=== PATIENT | female | born 1995 | race Caucasian/White ===

== ENCOUNTER 2017-04-19 11:08 | Emergency (ER) | payer OTHER ==
[~2017-04-19] VITALS: Ht 167.6 cm; Wt 106.6 kg
[~2017-04-19 11:08] MED LIST: PRD20T PO
[2017-04-19] MEDS ORDERED: NORG1TAB14 (11:30)
--- NOTE | 2017-04-19 11:44 | ED Upper Extremity ---
General Chief Complaint: Upper Extremity Stated Complaint: R HAND RING FINGER INJ Nursing Triage Note: SCRAPED 4TH RIGHT FINGER WHILE DOING DISHES AT WORK 04/18/17. REPORTS SWELLING/PAIN TO 3RD, 4TH FINGERS TODAY. 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 Reports today waking up with increased swelling, redness, and pain. Does report having a fever of 100.8 at home. Denies taking any medications at home. Location Injury Occurred: work Onset: yesterday Pain/Injury Location: right hand, right 4th finger Method of Injury: other (abrasion while washing pans at work.) Modifying Factors: Worse With Movement Allergies and Home Medications Allergies Coded Allergies: No Known Drug Allergies (Unverified , 05/04/16) Home Medications Doxycycline Hyclate 100 Mg Capsule, 100 MG PO BID, #14 Ref 0 Prescribed by: CARLOTA LEMUS on 04/19/17 1157 Hydrocodone/Acetaminophen 1 Each Tablet, 1 EACH PO Q4H PRN for PAIN, #14 Ref 0 Prescribed by: CARLOTA LEMUS on 04/19/17 1157 Norgestimate-Ethinyl Estradiol 1 Each Tablet, #84 (Reported) Sulfamethoxazole/Trimethoprim 1 Each Tablet, 1 EACH PO BID, #14 Ref 0 Prescribed by: CARLOTA LEMUS on 04/19/17 1157 Constitutional: see HPI, fever, No malaise Respiratory: no symptoms reported Cardiovascular: no symptoms reported Musculoskeletal: see HPI Skin: see HPI Psychiatric/Neurological: No Symptoms Reported All Other Systems Reviewed Negative Unless Noted: Yes (Negative excepted noted.) Past Wfsfunr-Yebzhn-Myoolc Hx Patient Social History Alcohol Use: Denies Use Recreational Drug Use: Yes Drug of Choice: CANNIBUS Smoking Status: Current Everyday Smoker Type Used: Cigarettes 2nd Hand Smoke Exposure: Yes Recent Foreign Travel: No Contact w/Someone Who Travel: No Recent Infectious Disease Expo: No Recent Hopitalizations: No Immunizations Up To Date Tetanus Booster (TDap): Less than 5yrs Seasonal Allergies Seasonal Allergies: No Surgeries HX Surgeries: Yes Surgeries: Adenoidectomy, Tonsillectomy Respiratory Hx Respiratory Disorders: No Cardiovascular Hx Cardiac Disorders: No Neurological Hx Neurological Disorders: No Reproductive System Hx Reproductive Disorders: Yes (POLYCYSTIC OVARIAN SYNDROME.) Female Reproductive Disorders: 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 Hx 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 Disorders: No Gastrointestinal Hx Gastrointestinal Disorders: No Musculoskeletal Hx Musculoskeletal Disorders: No Endocrine Hx Endocrine Disorders: No HEENT HX ENT Disorders: No Cancer Hx Cancer: No Psychosocial Hx Psychiatric Problems: No Reviewed Nursing Assessment Reviewed/Agree w Nursing PMH: Yes Family Medical History Significant Family History: No Pertinent Family Hx Physical Exam Vital Signs Vital Sign - Last 12Hours 04/19/17 11:31 Temp 98.1 Pulse 86 Resp 18 B/P (MAP) 122/67 Pulse Ox 99 O2 Delivery Room Air Capillary Refill : Less Than 3 Seconds General Appearance: WD/WN, no apparent distress Cardiovascular: normal peripheral pulses, regular rate, rhythm, no murmur Respiratory: lungs clear, normal breath sounds, no respiratory distress Elbow/Forearm: normal inspection, non-tender, no evidence of injury, normal ROM , Right Wrist: Yes normal inspection, Yes non-tender, Yes no evidence of injury, Yes normal ROM Hand: Right, infection (rt cullen swelling, erythema and warmth. a small scabbed abrasion noted on the posterior 4th PIP joint with minimal erythema. no active drainage.), limited ROM ((secondary to swelling).), soft tissue tenderness, swelling Neurologic/Tendon: normal sensation, normal motor functions, normal tendon functions, responds to pain, no evidence tendon injury Neurologic/Psychiatric: alert, normal mood/affect, oriented x 3 Skin: warm/dry, No cyanosis, No cool, No damp, No ecchymosis, No mottled, other (rt cullen swelling, erythema and warmth. a small scabbed abrasion noted on the posterior 4th PIP joint with minimal erythema. no active drainage.) Progress/Results/Core Measures Results/Orders Vital Signs/I&O Vital Sign - Last 12Hours 04/19/17 11:31 Temp 98.1 Pulse 86 Resp 18 B/P (MAP) 122/67 Pulse Ox 99 O2 Delivery Room Air Blood Pressure Mean: 85 Departure Communication Progress Notes Patient seen and evaluated. Plan for discharge to home. Patient instructed to return to the emergency department tomorrow for wound recheck and in 5-7 days with occupational health. Impression Impression: Primary Impression: Cellulitis of hand, right Additional Impression: Abrasion of finger of right hand Qualified Codes: S60.419A - Abrasion of unspecified finger, initial encounter Disposition: 01 HOME, SELF-CARE Condition: Improved Departure-Patient Inst. Decision time for Depature: 11:55 Referrals: REMA MODI MD (PCP/Family) Primary Care Physician Patient Instructions: Cellulitis (Skin Infection), Adult (DC) Add. Discharge Instructions: All discharge instructions reviewed with patient and/or family. Voiced understanding. Medications as instructed. Ibuprofen 800 mg by mouth every 8 hours as needed for pain. Elevate the right hand on pillows above the level of the heart. Ice packs or heating pads as needed for pain. Shower with antibacterial soap. Return tomorrow for wound check as an outpatient at the emergency Department. Follow-up with [facility] in the next 5-7 days for recheck. Return to the emergency department for worsened symptoms or any other concerns. Scripts Hydrocodone/Acetaminophen (Hydrocodon -Acetaminophen 5-325) 1 Each Tablet 1 EACH PO Q4H Y for PAIN, #14 TAB 0 Refills Prov: CARLOTA LEMUS 04/19/17 Doxycycline Hyclate (Doxycycline Hyclate) 100 Mg Capsule 100 MG PO BID, #14 CAP 0 Refills Prov: CARLOTA LEMUS 04/19/17 Sulfamethoxazole/Trimethoprim (Bactrim Ds Tablet) 1 Each Tablet 1 EACH PO BID, #14 TAB 0 Refills Prov: CARLOTA LEMUS 04/19/17 CARLOTA LEMUS April 19, 2017 11:44
[2017-04-19] MEDS ORDERED: SULF1TAB35 PO (11:57)
[2017-04-19] MEDS ORDERED: HYDR-3812 PO (11:57)
[2017-04-19] MEDS ORDERED: DOXY100C2 PO (11:57)
[2017-04-19 12:11] VITALS: BP 122/67
== END 2017-04-19 12:11 | disposition home or self-care (01) ==
LOC: EDUNIT# 11:08 → ER 11:10
DX: S60.414A Abrasion of right ring finger, initial encounter (principal); L03.113 Cellulitis of right upper limb; W22.8XXA Striking against or struck by other objects, initial encounter; Y93.G1 Activity, food preparation and clean up; Y99.0 Civilian activity done for income or pay
CPT/HCPCS: 99282

== ENCOUNTER → 2017-04-20 | Emergency (ER) | payer OTHER ==
[~2017-04-20] MED LIST changes: +DOXY100C2 PO; +HYDR-3812 PO; +NORG1TAB14; +SULF1TAB35 PO
== END | disposition left against medical advice (07) ==
LOC: EDUNIT# 13:07 → ER 13:09
DX: S69.91XA Unspecified injury of right wrist, hand and finger(s), initial encounter (principal); Z53.21 Procedure and treatment not carried out due to patient leaving prior to being seen by health care provider

== ENCOUNTER → 2017-05-22 | Outpatient (CLI) | payer OTHER ==
[~2017-05-22] MED LIST changes: +ACET-2267 PO; +CEFD300C3 PO; +CHOL4PAC3 PO; +CIPR500T4; +HYDR-756 PO; +METR500T PO
--- NOTE | 2017-05-22 15:33 | Diagnostic Imaging Report ---
INDICATION: Decreased appetite, elevated white, and elevated liver enzymes. TECHNIQUE: CT of the abdomen and pelvis obtained without IV contrast. COMPARISON: There is no prior study for comparison. FINDINGS: The visualized portions of the lung bases are clear. There were no pleural fluid collections. There is no free intraperitoneal air. The liver shows diffuse low-density change, compatible with fatty infiltration. There is no focal liver lesion. Gallbladder is not well seen but appears grossly unremarkable. The spleen, adrenals, and pancreas are normal in appearance. Kidneys bilaterally showed no radiopaque calculi or hydronephrosis. There is no retroperitoneal mass or adenopathy. There are few minimal nodes in the right lower quadrant mesentery which may represent mesenteric adenitis. The appendix appears nondistended. There is no sign of bowel obstruction or ileus. There is an IUD in the uterus. There is no overt adnexal mass. IMPRESSION: The liver shows diffuse fatty infiltration. There are few borderline-sized nodes in the right lower quadrant mesentery which may represent mesenteric adenitis. The appendix appears normal. There is no sign of bowel obstruction. Intrauterine device appears in good position. Dictated by: Dictated on workstation # [id number]
== END ==
LOC: RAD 14:42
PROVIDERS: ATTEND Nurse Practitioner Family
DX: K76.0 Fatty (change of) liver, not elsewhere classified (principal); Z97.5 Presence of (intrauterine) contraceptive device; R19.7 Diarrhea, unspecified; R11.0 Nausea; R74.8 Abnormal levels of other serum enzymes; D72.829 Elevated white blood cell count, unspecified
CPT/HCPCS: 74176

== ENCOUNTER 2017-05-24 09:32 | Emergency (ER) | payer OTHER ==
[~2017-05-24] VITALS: Ht 167.6 cm; Wt 101.2 kg
[~2017-05-24 09:32] MED LIST changes: -ACET-2267 PO; -CEFD300C3 PO; -CHOL4PAC3 PO; -CIPR500T4; -HYDR-756 PO; -METR500T PO
[2017-05-24] MEDS ORDERED: CIPR500T4 (09:48)
[2017-05-24 10:00] LABS: BASOPHILS # (AUTO) 0.1 10^3/uL (0.0-0.1); BASOPHILS % (AUTO) 0 % (0-10); EOSINOPHILS # (AUTO) 0.2 10^3/uL (0.0-0.3); EOSINOPHILS % (AUTO) 2 % (0-10); LYMPHOCYTES # (AUTO) 3.5 X 10^3 (1.0-4.0); LYMPHOCYTES % (AUTO) 31 % (12-44); MEAN CORPUSCULAR HEMOGLOBIN 30 PG (25-34); MEAN CORPUSCULAR HGB CONC 34 G/DL (32-36); MEAN CORPUSCULAR VOLUME 88 FL (80-99); MEAN PLATELET VOLUME 10.1 FL (7.4-10.4); MONOCYTES % (AUTO) 9 % (0-12); NEUTROPHILS # (AUTO) 6.7 X 10^3 (1.8-7.8); NEUTROPHILS % (AUTO) 58 % (42-75); PLATELET COUNT 224 10^3/uL (130-400); RED BLOOD COUNT 4.98 10^6/uL (4.35-5.85); RED CELL DISTRIBUTION WIDTH 13.1 % (10.0-14.5); WHITE BLOOD COUNT 11.4 10^3/uL (4.3-11.0)
[2017-05-24 10:14] LABS: BILIRUBIN,URINE 2+ (NEGATIVE); KETONES,URINE 2+ (NEGATIVE); LEUKOCYTE ESTERASE ,URINE 2+ (NEGATIVE); NITRITE,URINE NEGATIVE (NEGATIVE); PH,URINE 6 (5-9); PROTEIN,URINE 4+ (NEGATIVE); UROBILINOGEN,URINE 8 MG/DL (NORMAL)
[2017-05-24 10:16] LABS: ALANINE AMINOTRANSFERASE 44 U/L (0-55); ALBUMIN 4.1 GM/DL (3.2-4.5); ANION GAP 10 MMOL/L (5-14); ASPARTATE AMINO TRANSFERASE 18 U/L (5-34); BILIRUBIN,TOTAL 0.3 MG/DL (0.1-1.0); BLOOD UREA NITROGEN 8 MG/DL (7-18); BUN/CREATININE RATIO 10; CARBON DIOXIDE 22 MMOL/L (21-32); CHLORIDE 108 MMOL/L (98-107); CREATININE SERUM 0.79 MG/DL (0.60-1.30); GFR ESTIMATED > 60; GLUCOSE 130 MG/DL (70-105); LIPASE 24 U/L (8-78); SODIUM 140 MMOL/L (135-145); TOTAL PROTEIN 7.6 GM/DL (6.4-8.2)
[2017-05-24 10:36] LABS: WBC,URINE 25-50 /HPF
[2017-05-24] MEDS ORDERED: fentaNYL INJECTION 100 MCG/2 ML AMP IVP ONE ×2 (11:30→12:30)
[2017-05-24] MEDS ORDERED: NS IV 1000 ML 1,000 ML IV SCH (11:30)
[2017-05-24] MEDS ORDERED: cefTRIAXone INJECTION 1,000 MG in NS (IVPB) 50 ML IV ONE (11:30)
--- NOTE | 2017-05-24 11:42 | ED Abdominal Pain ---
General Chief Complaint: Abdominal/GI Problems Stated Complaint: SYNCOPE/ABD PAIN Nursing Triage Note: PT CO OF ABD PAIN FOR A FEW DAYS, STATES HAD BLOOD WORK DONE LAST WEEK AND CT ON THURSDAY FOR PAIN, WAS STARTED ON CIPRO YESTERDAY. STATES SISTER SICK W VIRUS LAST WEEK. PT HYPERVENTILATING. DENIES N/V/D Sepsis Screen: No Definite Risk Source of Information: Patient, Family Exam Limitations: No Limitations History of Present Illness Time Seen By Provider: 11:15 Initial Comments The patient is a 22-year-old white female who presents today with complaints of abdominal pain. Timing/Duration: 3-4 Days Severity/Quality: Moderate Location: Generalized Abdomen, Suprapubic Associated Symptoms: Other (constipation and dysuria) Allergies and Home Medications Allergies Coded Allergies: No Known Drug Allergies (Unverified , 05/04/16) Home Medications Ciprofloxacin HCl 500 Mg Tablet, #14 (Reported) Review of Systems Constitutional: see HPI, other (also reports near syncope while sitting on the toilet today) EENTM: No Symptoms Reported Respiratory: SOA at Rest (hyperventilation) Cardiovascular: No Symptoms Reported Gastrointestinal: Abdominal Pain, Constipated 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: Frequency, Urgency Musculoskeletal: see HPI Skin: no symptoms reported Psychiatric/Neurological: No Symptoms Reported Endocrine: No Symptoms Reported Past Erhvmih-Ayikfm-Kmsecb Hx Patient Social History Alcohol Use: Denies Use Recreational Drug Use: Yes Drug of Choice: CANNIBUS Smoking Status: Current Everyday Smoker Type Used: Cigarettes 2nd Hand Smoke Exposure: Yes Recent Foreign Travel: No Contact w/Someone Who Travel: No Recent Infectious Disease Expo: No Recent Hopitalizations: No Immunizations Up To Date Tetanus Booster (TDap): Less than 5yrs Seasonal Allergies Seasonal Allergies: No Surgeries HX Surgeries: Yes Surgeries: Adenoidectomy, Tonsillectomy Respiratory Hx Respiratory Disorders: No Cardiovascular Hx Cardiac Disorders: No Neurological Hx Neurological Disorders: No Reproductive System Hx Reproductive Disorders: Yes (POLYCYSTIC OVARIAN SYNDROME.) Female Reproductive Disorders: 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 Hx 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 Disorders: No Gastrointestinal Hx Gastrointestinal Disorders: No Musculoskeletal Hx Musculoskeletal Disorders: No Endocrine Hx Endocrine Disorders: No HEENT HX ENT Disorders: No Cancer Hx Cancer: No Psychosocial Hx Psychiatric Problems: No Family Medical History Significant Family History: No Pertinent Family Hx Physical Exam Vital Signs VS - Last 72 Hours, by Label 05/24/17 09:35 Temp 96.0 Pulse 64 Resp 18 B/P (MAP) 129/88 Pulse Ox 99 Capillary Refill : Less Than 3 Seconds General Appearance: moderate distress HEENT: normal ENT inspection Neck: full range of motion Respiratory: chest non-tender, lungs clear, normal breath sounds, no respiratory distress, no accessory muscle use Cardiovascular: normal peripheral pulses, regular rate, rhythm, no edema, no gallop, no JVD, no murmur Gastrointestinal: abnormal bowel sounds (decreased. Generalized tenderness to palpation. More focused pain to palpation at the suprapubic area) Extremities: normal range of motion, non-tender, normal inspection, no pedal edema, no calf tenderness, normal capillary refill, pelvis stable Back: normal inspection Neurologic/Psychiatric: call center support consultant II-XII nml as tested, no motor/sensory deficits, alert, normal mood/affect, oriented x 3 Skin: normal color, warm/dry Progress/Results/Core Measures Results/Orders Lab Results Laboratory Tests Test 05/24/17 09:50 05/24/17 10:04 Range/Units White Blood Count 11.4 H 4.3-11.0 10^3/uL Red Blood Count 4.98 4.35-5.85 10^6/uL Hemoglobin 14.8 11.5-16.0 G/DL Hematocrit 44 35-52 % Mean Corpuscular Volume 88 80-99 FL Mean Corpuscular Hemoglobin 30 25-34 PG Mean Corpuscular Hemoglobin Concent 34 32-36 G/DL Red Cell Distribution Width 13.1 10.0-14.5 % Platelet Count 224 130-400 10^3/uL Mean Platelet Volume 10.1 7.4-10.4 FL Neutrophils (%) (Auto) 58 42-75 % Lymphocytes (%) (Auto) 31 12-44 % Monocytes (%) (Auto) 9 0-12 % Eosinophils (%) (Auto) 2 0-10 % Basophils (%) (Auto) 0 0-10 % Neutrophils # (Auto) 6.7 1.8-7.8 X 10^3 Lymphocytes # (Auto) 3.5 1.0-4.0 X 10^3 Monocytes # (Auto) 1.0 0.0-1.0 X 10^3 Eosinophils # (Auto) 0.2 0.0-0.3 10^3/uL Basophils # (Auto) 0.1 0.0-0.1 10^3/uL Sodium Level 140 135-145 MMOL/L Potassium Level 4.0 3.6-5.0 MMOL/L Chloride Level 108 H 98-107 MMOL/L Carbon Dioxide Level 22 21-32 MMOL/L Anion Gap 10 5-14 MMOL/L Blood Urea Nitrogen 8 7-18 MG/DL Creatinine 0.79 0.60-1.30 MG/DL Estimat Glomerular Filtration Rate > 60 BUN/Creatinine Ratio 10 Glucose Level 130 H 70-105 MG/DL Calcium Level 10.0 8.5-10.1 MG/DL Total Bilirubin 0.3 0.1-1.0 MG/DL Aspartate Amino Transf (AST/SGOT) 18 5-34 U/L Alanine Aminotransferase (ALT/SGPT) 44 0-55 U/L Alkaline Phosphatase 56 40-136 U/L Total Protein 7.6 6.4-8.2 GM/DL Albumin 4.1 3.2-4.5 GM/DL Lipase 24 8-78 U/L Urine Color JOHN H Urine Clarity VERY CLOUDY H Urine pH 6 5-9 Urine Specific [place] 1.025 H 1.016-1.022 Urine Protein 4+ NEGATIVE Urine Glucose (UA) NEGATIVE NEGATIVE Urine Ketones 2+ H NEGATIVE Urine Nitrite NEGATIVE NEGATIVE Urine Bilirubin 2+ H NEGATIVE Urine Urobilinogen 8 H NORMAL MG/DL Urine Leukocyte Esterase 2+ H NEGATIVE Urine RBC (Auto) 2+ H NEGATIVE Urine RBC NONE /HPF Urine WBC 25-50 H /HPF Urine Squamous Epithelial Cells 5-10 /HPF Urine Crystals NONE /LPF Urine Bacteria LARGE H /HPF Urine Casts NONE /LPF Urine Mucus MODERATE H /LPF Urine Culture Indicated NO My Orders Orders - SHON KELLER MD Cbc With Automated Diff (05/24/17 09:41) Comprehensive Metabolic Panel (05/24/17 09:41) Lipase (05/24/17 09:41) Ua Culture If Indicated (05/24/17 09:41) Ns Iv 1000 Ml (Sodium Chloride 0.9%) (05/24/17 11:30) Fentanyl Injection (Sublimaze Injection (05/24/17 11:30) Ceftriaxone Injection (Rocephin Injectio (05/24/17 11:30) Fentanyl Injection (Sublimaze Injection (05/24/17 12:30) Medications Given in ED Current Medications Medications Dose Ordered Sig/Tye Route Start Time Stop Time Status Last Admin Dose Admin Ceftriaxone Sodium 1000 mg/ Sodium Chloride 50 ml @ 100 mls/hr ONCE ONCE IV 05/24/17 11:30 05/24/17 11:59 DC 05/24/17 11:30 100 MLS/HR Fentanyl Citrate 50 mcg ONCE ONCE IVP 05/24/17 11:30 05/24/17 11:31 DC 05/24/17 11:30 50 MCG Vital Signs/I&O Vital Sign - Last 12Hours 05/24/17 09:35 Temp 96.0 Pulse 64 Resp 18 B/P (MAP) 129/88 Pulse Ox 99 Blood Pressure Mean: 102 Departure Communication Progress Notes The patient continues to complain of generalized abdominal pain. UA shows 25- 50 WBCs per high-powered field consistent with urinary tract infection and matching her new suprapubic complaint. Impression Impression: Primary Impression: mesenteric adenitis Additional Impression: urinary tract infection Disposition: HOME, SELF-CARE Condition: Stable/Unchanged Departure-Patient Inst. Referrals: REMA MODI MD (PCP/Family) Primary Care Physician Patient Instructions: Acute Abdomen (Belly Pain), Adult (DC) Add. Discharge Instructions: All discharge instructions reviewed with patient and/or family. Voiced understanding. Clear liquid diet Tylenol 1 g or ibuprofen 600 mg every 6 hours for fever Alto every 4-6 hours for pain. Stop the Cipro and fill the new prescription for Omnicef. Begin with a first dose tomorrow. See your provider tomorrow if continued problems Scripts Cefdinir (Cefdinir) 300 Mg Capsule 300 MG PO BID, #14 CAP Prov: SHON KELLER MD 05/24/17 Hydrocodone/Acetaminophen ([place] 7.5-325 Tablet) 1 Each Tablet 1 EACH PO every 4 hours Y for pain, #20 TAB Prov: SHON KELLER MD 05/24/17 SHON KELLER MD May 24, 2017 11:42
[2017-05-24] MEDS ORDERED: CEFD300C3 PO (12:29)
[2017-05-24] MEDS ORDERED: HYDR-756 PO (12:29)
[2017-05-24 13:14] VITALS: BP 122/78
[2017-05-25] MEDS ORDERED: ACET-2267 PO (09:27)
[2017-05-26] MEDS ORDERED: CHOL4PAC3 PO (10:59)
[2017-05-26] MEDS ORDERED: METR500T PO (10:59)
== END 2017-05-24 13:13 | disposition home or self-care (01) ==
LOC: EDUNIT# 09:32 → ER 09:33
DX: I88.0 Nonspecific mesenteric lymphadenitis (principal); N39.0 Urinary tract infection, site not specified; F12.90 Cannabis use, unspecified, uncomplicated; F17.210 Nicotine dependence, cigarettes, uncomplicated; Z90.89 Acquired absence of other organs
CPT/HCPCS: 36415; 80053; 81000; 83690; 85025; 87088; 96361; 96374; 96375; 96376

== ENCOUNTER 2017-05-24 16:25 | Day surgery (SDC) | payer OTHER ==
[~2017-05-24] VITALS: Ht 167.6 cm; Wt 101.2 kg
[~2017-05-24 16:25] MED LIST changes: +ACETAMINOPHEN 500 MG TAB (TYLENOL) PO PRN; +ALPRAZolam 0.25 MG (XANAX) TAB PO PRN; +BISACODYL 5 MG (DULCOLAX) TABLET PO SCH; +CEFD300C3 PO; +CIPR500T4; +HYDR-756 PO
[2017-05-24 16:43] VITALS: BP 127/80
[2017-05-24] MEDS ORDERED: MAGNESIUM CITRATE 300 ML BTL PO ONE (17:00)
[2017-05-24] MEDS: NS IV 1000 ML 1,000 ML IV SCH (17:02)
[2017-05-24] MEDS ORDERED: BISACODYL 5 MG (DULCOLAX) TABLET PO ONE ×2 (17:03→17:30)
[2017-05-24 17:05] LABS: BASOPHILS % (AUTO) 0 % (0-10); EOSINOPHILS % (AUTO) 0 % (0-10); LYMPHOCYTES # (AUTO) 1.6 X 10^3 (1.0-4.0); LYMPHOCYTES % (AUTO) 11 % (12-44); MEAN CORPUSCULAR HEMOGLOBIN 30 PG (25-34); MEAN CORPUSCULAR HGB CONC 34 G/DL (32-36); MEAN CORPUSCULAR VOLUME 88 FL (80-99); MEAN PLATELET VOLUME 10.2 FL (7.4-10.4); MONOCYTES # (AUTO) 0.7 X 10^3 (0.0-1.0); MONOCYTES % (AUTO) 5 % (0-12); NEUTROPHILS # (AUTO) 12.6 X 10^3 (1.8-7.8); NEUTROPHILS % (AUTO) 85 % (42-75); PLATELET COUNT 241 10^3/uL (130-400); RED CELL DISTRIBUTION WIDTH 12.9 % (10.0-14.5); WHITE BLOOD COUNT 14.8 10^3/uL (4.3-11.0)
[2017-05-24 17:19] LABS: BAND NEUTROPHILS 4 %; BASOPHILS % (MANUAL) 0 %; EOSINOPHILS % (MANUAL) 0 %; LYMPHOCYTES % (MANUAL) 11 %; NEUTROPHILS % (MANUAL) 79 %
[2017-05-24 17:24] LABS: ALANINE AMINOTRANSFERASE 42 U/L (0-55); ANION GAP 9 MMOL/L (5-14); ASPARTATE AMINO TRANSFERASE 17 U/L (5-34); BILIRUBIN,TOTAL 0.3 MG/DL (0.1-1.0); BLOOD UREA NITROGEN 6 MG/DL (7-18); BUN/CREATININE RATIO 8; CALCIUM 9.4 MG/DL (8.5-10.1); CARBON DIOXIDE 21 MMOL/L (21-32); CHLORIDE 109 MMOL/L (98-107); CREATININE SERUM 0.71 MG/DL (0.60-1.30); GFR ESTIMATED > 60; GLUCOSE 126 MG/DL (70-105); SODIUM 139 MMOL/L (135-145); TOTAL PROTEIN 7.3 GM/DL (6.4-8.2)
[2017-05-24] MEDS: fentaNYL INJECTION 100 MCG/2 ML AMP IVP PRN (19:45)
[2017-05-24 20:25] VITALS: BP 123/71
[2017-05-24] MEDS: PANTOPRAZOLE 40 MG (PROTONIX) TAB PO SCH (21:00)
[2017-05-24] MEDS: HYDROcodone/APAP 5 MG/325 MG (LORTAB) TAB PO PRN (21:00)
[2017-05-24] MEDS: BISACODYL 5 MG (DULCOLAX) TABLET PO SCH (21:00)
[2017-05-24] MEDS: ONDANSETRON 4 MG/2 ML (SDV) Z0FRAN IVP PRN (21:00)
[2017-05-24 21:14] VITALS: BP 126/80
[2017-05-24] MEDS ORDERED: MAGNESIUM CITRATE 300 ML BTL PO PRN (22:00)
[2017-05-25] VITALS: BP 119/79
[2017-05-25] MEDS: NS IV 1000 ML 1,000 ML IV SCH ×4 (01:04→22:47)
[2017-05-25] MEDS: ONDANSETRON 4 MG/2 ML (SDV) Z0FRAN IVP PRN (02:32)
[2017-05-25] MEDS: HYDROcodone/APAP 5 MG/325 MG (LORTAB) TAB PO PRN ×2 (02:32→08:04)
[2017-05-25 04:00] VITALS: BP 113/71
[2017-05-25 05:20] LABS: BASOPHILS % (AUTO) 0 % (0-10); EOSINOPHILS # (AUTO) 0.1 10^3/uL (0.0-0.3); EOSINOPHILS % (AUTO) 1 % (0-10); LYMPHOCYTES # (AUTO) 2.5 X 10^3 (1.0-4.0); LYMPHOCYTES % (AUTO) 16 % (12-44); MEAN CORPUSCULAR HEMOGLOBIN 29 PG (25-34); MEAN CORPUSCULAR HGB CONC 33 G/DL (32-36); MEAN CORPUSCULAR VOLUME 89 FL (80-99); MEAN PLATELET VOLUME 10.3 FL (7.4-10.4); MONOCYTES # (AUTO) 1.2 X 10^3 (0.0-1.0); MONOCYTES % (AUTO) 8 % (0-12); NEUTROPHILS # (AUTO) 11.6 X 10^3 (1.8-7.8); NEUTROPHILS % (AUTO) 75 % (42-75); PLATELET COUNT 230 10^3/uL (130-400); RED BLOOD COUNT 4.71 10^6/uL (4.35-5.85); RED CELL DISTRIBUTION WIDTH 13.1 % (10.0-14.5); WHITE BLOOD COUNT 15.4 10^3/uL (4.3-11.0)
[2017-05-25 05:52] LABS: ALANINE AMINOTRANSFERASE 35 U/L (0-55); ANION GAP 12 MMOL/L (5-14); ASPARTATE AMINO TRANSFERASE 16 U/L (5-34); BILIRUBIN,TOTAL 0.4 MG/DL (0.1-1.0); BLOOD UREA NITROGEN 4 MG/DL (7-18); BUN/CREATININE RATIO 6; CALCIUM 8.8 MG/DL (8.5-10.1); CARBON DIOXIDE 20 MMOL/L (21-32); CHLORIDE 109 MMOL/L (98-107); GFR ESTIMATED > 60; GLUCOSE 122 MG/DL (70-105); POTASSIUM 3.9 MMOL/L (3.6-5.0); SODIUM 141 MMOL/L (135-145); TOTAL PROTEIN 6.9 GM/DL (6.4-8.2)
[2017-05-25] MEDS: fentaNYL INJECTION 100 MCG/2 ML AMP IVP PRN ×3 (06:35→22:42)
[2017-05-25 08:00] VITALS: BP 133/85
[2017-05-25] MEDS: cefTRIAXone INJECTION 1,000 MG in NS (IVPB) 50 ML IV SCH (09:11)
[2017-05-25] MEDS: BISACODYL 5 MG (DULCOLAX) TABLET PO SCH (09:11)
[2017-05-25] MEDS: PANTOPRAZOLE 40 MG (PROTONIX) TAB PO SCH ×2 (09:11→20:38)
[2017-05-25] MEDS ORDERED: ACET-2267 PO ×2 (09:27)
--- NOTE | 2017-05-25 09:27 | Consultation ---
History of Present Illness History of Present Illness Patient Consulted On(sharath/time) 05/25/17 09:20 Time Seen by Provider: 09:01 History of Present Illness Surgery asked to consult regarding rectal bleed and abdominal pain. HPI: PT has had pain for over a week, started in RUQ and now is diffuse. Initially went to Urgent care and they thought it was Gallbladder, CT read by radiologist as normal per pt (no GB problems). In the ER she was found to have a UTI and she states the ER doctor told her she had mesenteric adenitis. She states she has really only been drinking fluids, not able to take any solids. When she went home from ER she started having "bright red blood with her bowel movement". She also states she "got vagal" at home. She denies anyone else in family with similar symptoms, no recent travel, [place]. She denies pain with certain foods, just saw her stool was "bright yellow with bile and oily". She also complained of dysuria, no hematuria. Allergies and Home Medications Allergies Coded Allergies: No Known Drug Allergies (Unverified , 05/24/17) Home Medications Cefdinir 300 Mg Capsule, 300 MG PO BID, #14 Prescribed by: SHON KELLER on 05/24/17 1229 Ciprofloxacin HCl 500 Mg Tablet, #14 (Reported) Hydrocodone/Acetaminophen 1 Each Tablet, 1 EACH PO every 4 hours PRN for pain, # 20 Prescribed by: SHON KELLER on 05/24/17 1229 Past Rggjpdg-Sokyqi-Aalplv Hx Patient Social History Alcohol Use: Occasionally Uses Recreational Drug Use: No Drug of Choice: CANNIBUS Smoking Status: Current Everyday Smoker Type Used: Cigarettes 2nd Hand Smoke Exposure: Yes Recent Foreign Travel: No Recent Hopitalizations: No Physical Abuse Screen: No Sexual Abuse: No Immunizations Up To Date Tetanus Booster (TDap): Less than 5yrs Seasonal Allergies Seasonal Allergies: No Surgeries HX Surgeries: Yes Surgeries: Adenoidectomy, Tonsillectomy Respiratory Hx Respiratory Disorders: No Cardiovascular Hx Cardiac Disorders: No Neurological Hx Neurological Disorders: No Reproductive System : No Hx Reproductive Disorders: Yes (POLYCYSTIC OVARIAN SYNDROME.) Female Reproductive Disorders: Polycystic 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 Hx 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 Disorders: No Gastrointestinal Hx Gastrointestinal Disorders: No Musculoskeletal Hx Musculoskeletal Disorders: No Endocrine Hx Endocrine Disorders: No HEENT HX ENT Disorders: No Cancer Hx Cancer: No Psychosocial Hx Psychiatric Problems: No Family Medical History Significant Family History: No Pertinent Family Hx, CAD Under 55 Years Old ( Mother had CABG x 4) Family Medial History: Cardiovascular disease 19 MOTHER Review of Systems-General Constitutional: dizziness, fever, malaise EENTM: No blurred vision, No epistaxis, No hearing loss, No mouth swelling, No throat swelling Respiratory: No cough, No dyspnea on exertion, No hemoptysis Cardiovascular: No chest pain, No edema, No Hx of Intervention, No palpitations Gastrointestinal: RUQ, constipation, No jaundice, other (hematochezia) 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: dysuria, frequency, No hematuria Musculoskeletal: No back pain, No joint pain, No muscle stiffness, No muscle cramps Skin: No change in color, No change in hair/nails Psychiatric/Neurological: Denies Anxiety, Denies Depressed, Denies Paresthesia , Denies Seizure, Denies Tremors Other pt denies any abnormal bleeding or bruising, no heat or cold intolerance Physical Exam-General Problems Physical Exam Vital Signs Vital Sign - Last 12Hours 05/24/17 16:43 Temp 97.2 Pulse 91 Resp 24 B/P (MAP) 127/80 Pulse Ox 94 O2 Delivery Room Air Capillary Refill : General Appearance: WD/WN, mild distress, obese Eyes: Bilateral Eye EOMI, Bilateral Eye PERRL HEENT: pharynx normal, No scleral icterus (R), No scleral icterus (L) Neck: non-tender, full range of motion, supple, normal inspection Respiratory: chest non-tender, lungs clear, normal breath sounds, no respiratory distress, no accessory muscle use Cardiovascular: regular rate, rhythm, no edema, no gallop, no murmur Gastrointestinal: soft, no organomegaly, no pulsatile mass, tenderness ( diffusely) Rectal: deferred Back: no CVA tenderness, no vertebral tenderness Extremities: normal range of motion, non-tender, normal inspection, no pedal edema, no calf tenderness Neurologic/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: 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 tested, no motor/sensory deficits, alert, normal mood/affect, oriented x 3 Skin: normal color, warm/dry Lymphatic: no adenopathy (neck, axilla or groin) Data Review Labs Laboratory Tests 05/24/17 16:58: White Blood Count 14.8H, Red Blood Count 4.80, Hemoglobin 14.2, Hematocrit 42, Mean Corpuscular Volume 88, Mean Corpuscular Hemoglobin 30, Mean Corpuscular Hemoglobin Concent 34, Red Cell Distribution Width 12.9, Platelet Count 241, Mean Platelet Volume 10.2, Neutrophils (%) (Auto) 85H, Lymphocytes (%) (Auto) 11L, Monocytes (%) (Auto) 5, Eosinophils (%) (Auto) 0, Basophils (%) (Auto) 0, Neutrophils # (Auto) 12.6H, Lymphocytes # (Auto) 1.6, Monocytes # (Auto) 0.7, Eosinophils # (Auto) 0.0, Basophils # (Auto) 0.0, Neutrophils % (Manual) 79, Lymphocytes % (Manual) 11, Monocytes % (Manual) 6, Eosinophils % (Manual) 0, Basophils % (Manual) 0, Band Neutrophils 4, Blood Morphology Comment NORMAL, Sodium Level 139, Potassium Level 4.0, Chloride Level 109H, Carbon Dioxide Level 21, Anion Gap 9, Blood Urea Nitrogen 6L, Creatinine 0.71, Estimat Glomerular Filtration Rate > 60, BUN/Creatinine Ratio 8, Glucose Level 126H, Calcium Level 9.4, Total Bilirubin 0.3, Aspartate Amino Transf (AST/SGOT) 17, Alanine Aminotransferase (ALT/SGPT) 42, Alkaline Phosphatase 53, Total Protein 7.3, Albumin 4.0, Serum Test, Qualitative NEGATIVE 05/24/17 17:56: Stool Occult Blood Immunoassay POSITIVEH 05/25/17 05:05: White Blood Count 15.4H, Red Blood Count 4.71, Hemoglobin 13.7, Hematocrit 42, Mean Corpuscular Volume 89, Mean Corpuscular Hemoglobin 29, Mean Corpuscular Hemoglobin Concent 33, Red Cell Distribution Width 13.1, Platelet Count 230, Mean Platelet Volume 10.3, Neutrophils (%) (Auto) 75, Lymphocytes (%) (Auto) 16 , Monocytes (%) (Auto) 8, Eosinophils (%) (Auto) 1, Basophils (%) (Auto) 0, Neutrophils # (Auto) 11.6H, Lymphocytes # (Auto) 2.5, Monocytes # (Auto) 1.2H, Eosinophils # (Auto) 0.1, Basophils # (Auto) 0.0, Sodium Level 141, Potassium Level 3.9, Chloride Level 109H, Carbon Dioxide Level 20L, Anion Gap 12, Blood Urea Nitrogen 4L, Creatinine 0.70, Estimat Glomerular Filtration Rate > 60, BUN/ Creatinine Ratio 6, Glucose Level 122H, Calcium Level 8.8, Total Bilirubin 0.4, Aspartate Amino Transf (AST/SGOT) 16, Alanine Aminotransferase (ALT/SGPT) 35, Alkaline Phosphatase 55, Total Protein 6.9, Albumin 4.0 Assessment/Plan Assessment/Plan Assessment/Plan Rectal Bleed Abdominal pain UTI Mesenteric adenitis Pt was admitted on clear liquids, bowel prep, pain control and IV ABX. Plan is to do a colonoscopy with possible biopsy. Discussed the risks and complications; not limited to pain, bleeding, infection and possible bowel perforation. All questions answered to her satisfaction. Pt probably needs to take Probiotics as an outpt, finish off ABX for her UTI. She most likely just has a viral gastroenteritis, but hopefully we can determine cause of bleeding. She also may need an US possible HIDA scan as an outpt to workup gallbladder. Clinical Quality Measures DVT/VTE Risk/Contraindication: Risk Factor Score Per Nursin RFS Level Per Nursing on Admit: 3=High BENNETT MEJIA DO May 25, 2017 09:27
[2017-05-25] MEDS ORDERED: MIDAZOLAM 2 MG/2 ML (VERSED) VIAL ONE (10:31)
[2017-05-25] MEDS ORDERED: PROPOFOL INJECTION 50 ML IV ONE (10:32)
--- NOTE | 2017-05-25 11:21 | Progress Note-Post Operative ---
Post-Operative Progess Note Surgeon (s)/Railway Equipment Operator (s) Surgeon BENNETT MEJIA DO Railway Equipment Operator: none Pre-Operative Diagnosis Rectal bleed, abdominal pain Post-Operative Diagnosis Colitis Rectal bleed Abdominal pain Procedure & Operative Findings Date of Procedure 05/25/17 Procedure Performed/Findings Colonoscopy with biopsy Anesthesia Type IV sedation by TRANSPORTATION SECURITY OFFICER Estimated Blood Loss Estimated blood loss (mL): scant Specimens/Packing Specimens Removed random biopsies from TI, ascending, transverse, desceding and sigmoid colon BENNETT MEJIA DO May 25, 2017 11:21
[2017-05-25 12:00] VITALS: BP 138/89
--- NOTE | 2017-05-25 14:42 | Progress Note-Hospitalist ---
Standard Progress Note Progress Notes/Assess & Plan Date Seen 05/25/17 Time Seen by Provider: 14:40 Assess & Plan/Chief Complaint Reviewed photos acquired by Dr. Henry post colonoscopy. The patient exhibits mucosal edema and superficial ulcerations in the right and transverse colon. He recommends that we place the patient on Cipro and Flagyl and that this would be continued for 10 days to 2 weeks. The patient is alert post procedure and reports that she still has modest pain. She is taking a clear liquid diet. Physical exam: Lungs are clear to auscultation. CV is regular without murmur. Abdomen is soft bowel sounds are hypoactive. Impression: Acute infectious colitis Plan: Clear liquid diet. Add Flagyl and Cipro to the regimen Labs Laboratory Tests 05/24/17 16:58 05/25/17 05:05 SHON KELLER MD May 25, 2017 14:42
[2017-05-25 16:27] VITALS: BP 138/89
[2017-05-25] MEDS: metroNIDAZOLE 500MG/100ML IVPB 100 ML IV SCH ×2 (16:39→22:09)
--- NOTE | 2017-05-25 17:07 | OPERATIVE REPORT ---
PROCEDURE PHYSICIAN: BENNETT MEJIA DATE OF PROCEDURE: PREOPERATIVE DIAGNOSIS: 1. Rectal bleed. 2. Abdominal pain. POSTOPERATIVE DIAGNOSIS: 1. Colitis. 2. Rectal bleed. 3. Abdominal pain. PROCEDURE: Colonoscopy with biopsies. SURGEON: Dr. Carl JOSE ASSIST: None. ANESTHESIA: IV sedation by [employer]IP[employer] TAPER. BLOOD LOSS: Scant. FLUIDS: Per anesthesia. POSTOPERATIVE: Stable. SPECIMENS: The patient had random biopsies done, one in the ascending colon, one in the transverse colon, one in the descending colon and one in the sigmoid colon as well as one in the terminal ileum. INDICATIONS FOR THE PROCEDURE: The patient is a 21-year-old female who has been having abdominal pain, mildly elevated white count and had rectal bleeding and needed a colonoscopy. FINDINGS: The patient had colitis seen mostly in the upper portion of the ascending, colon, transverse colon, the sigmoid colon and descending colon, but sigmoid colon seemed to be spared. There was a small ulcer also in the terminal ileum. PROCEDURE NOTE: After informed consent was obtained, the patient was brought to the endoscopy suite, placed in the left lateral decubitus position. She was administered IV sedation by STRIP[employer] TAPER and then her vitals were monitored the entire time. The scope was inserted and inserted, all the way to [address], we noted what looked like some inflammation, pushed all the way to the cecum. Once the cecum, took a picture of the appendiceal orifice and then able to get into terminal ileum. There were some nonspecific polyps in the terminal ileum, these are usually normal but there was also small ulcer and I elected to do a biopsy of this. I then slowly withdrew the scope insufflating to look circumferentially at the byrnes, looked at the cecum, up the ascending colon. At the top of the ascending colon there was some colitis, ulcer and inflammation. I took a biopsy here. Then in the transverse colon, again saw some worsening of this inflammation and ulcers, took a couple biopsies here and then took a biopsy in the descending colon. Started to clear up towards the sigmoid colon and then nothing was seen in the rectal vault except for some internal hemorrhoids, had retroflexed to look at the internal hemorrhoids. The patient tolerated the procedure and was recovered in the endoscopy. She was in stable condition. 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
[2017-05-25 19:41] VITALS: BP 117/72
[2017-05-25] MEDS: CIPROFLOXACIN 500 MG (CIPRO) TABLET PO SCH (20:38)
[2017-05-26 00:19] VITALS: BP 140/85
[2017-05-26 04:22] VITALS: BP 121/72
[2017-05-26] MEDS: metroNIDAZOLE 500MG/100ML IVPB 100 ML IV SCH (05:30)
[2017-05-26] MEDS: NS IV 1000 ML 1,000 ML IV SCH (07:38)
[2017-05-26 08:00] VITALS: BP 130/80
[2017-05-26] MEDS: HYDROcodone/APAP 5 MG/325 MG (LORTAB) TAB PO PRN (09:05)
[2017-05-26] MEDS: PANTOPRAZOLE 40 MG (PROTONIX) TAB PO SCH (09:06)
[2017-05-26] MEDS: BISACODYL 5 MG (DULCOLAX) TABLET PO SCH (09:06)
[2017-05-26] MEDS: cefTRIAXone INJECTION 1,000 MG in NS (IVPB) 50 ML IV SCH (09:06)
[2017-05-26] MEDS: CIPROFLOXACIN 500 MG (CIPRO) TABLET PO SCH (09:08)
[2017-05-26] MEDS ORDERED: CHOLESTYRAMINE 4 GM (QUESTRAN LITE, PREVALITE) PKT PO NR (10:47)
--- NOTE | 2017-05-26 10:53 | Short Stay Summary-Hospitalist ---
HPI History of Present Illness: HPI/Chief Complaint The patient is a 22-year-old white female who was admitted on 05/24. She had been in the emergency room earlier that afternoon with complaints of abdominal pain. This had begun several days prior to that presentation. She had been seen at her PCPs office earlier in the week and had blood testing done which had did not clarify anything. She had a CT scan of the abdomen done on 05/22 which showed no clear pathology. There was some colonic wall thickening and prominent lymph nodes in the mesentery suggesting a mesenteric adenitis. She also reported that she had not had a bowel movement in several days. At that point she was taking Cipro. Her workup showed a white count of the left thousand 400 UA showed a very cloudy urine and 25-50 WBCs per high-powered field. She was discharged from the ER and told to stop the Cipro and to switch to Omnicef for the presumed urinary tract infection. About 2 hours after discharge she called back stating that she was having more pain and had had a bloody stool. She was advised to present for admission. Source: patient Exam Limitations: no limitations Date Seen 05/26/17 Time Seen by Provider: 10:48 Attending Physician Alana Rose DO PCP Brian Quintero MD Referring Physician Date of Admission May 24, 2017 at 16:16 Home Medications & Allergies Home Medications Reviewed patient Home Medication Reconciliation Form Allergies Allergies Coded Allergies No Known Drug Allergies (Unverified05/24/17) Past Vphsitj-Ladgih-Dghjdt Hx Patient Social History Alcohol Use: Occasionally Uses Recreational Drug Use: No Drug of Choice: CANNIBUS Smoking Status: Current Everyday Smoker Type Used: Cigarettes 2nd Hand Smoke Exposure: Yes Physical Abuse Screen: No Sexual Abuse: No Recent Foreign Travel: No Recent Hopitalizations: No Immunizations Up To Date Tetanus Booster (TDap): Less than 5yrs Seasonal Allergies Seasonal Allergies: No Surgeries HX Surgeries: Yes Surgeries: Adenoidectomy, Tonsillectomy Respiratory Hx Respiratory Disorders: No Cardiovascular Hx Cardiovascular Disorders: No Neurological Hx Neurological Disorders: No Reproductive System : No Hx Reproductive Disorders: Yes (POLYCYSTIC OVARIAN SYNDROME.) Female Reproductive Disorders: Polycystic Ovarian Dis 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 Hx 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 Disorders: No Gastrointestinal Hx Gastrointestinal Disorders: No Musculoskeletal Hx Musculoskeletal Disorders: No Endocrine Hx Endocrine Disorders: No HEENT HX ENT Disorders: No Cancer Hx Cancer: No Psychosocial Hx Psychiatric Problems: No Family Medical History Significant Family History: No Pertinent Family Hx, CAD Under 55 Years Old ( Mother had CABG x 4) Family Hx: Cardiovascular disease 19 MOTHER Review of Systems Constitutional: see HPI Respiratory: no symptoms reported Cardiovascular: no symptoms reported Gastrointestinal: see HPI, abdominal pain (RUQ) 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: no symptoms reported Musculoskeletal: no symptoms reported Skin: no symptoms reported Psychiatric/Neurological: No Symptoms Reported Physical Exam Physical Exam Vital Signs Vital Sign - Last 12Hours 05/24/17 16:43 Temp 97.2 Pulse 91 Resp 24 B/P (MAP) 127/80 Pulse Ox 94 O2 Delivery Room Air Capillary Refill : General Appearance: Mild Distress, Moderate Distress Eyes: Bilateral Eye Normal Inspection Neck: Full Range of Motion, Normal Inspection, Non Tender, Supple, Carotid Bruit Respiratory: Chest Non Tender, Lungs Clear, Normal Breath Sounds, No Accessory Muscle Use, No Respiratory Distress Cardiovascular: Regular Rate, Rhythm, No Edema, No Gallop, No JVD, No Murmur, Normal Peripheral Pulses Gastrointestinal: Abnormal Bowel Sounds (hypoactive), Tenderness (diffuse) Back: Normal Inspection, No CVA Tenderness, No Vertebral Tenderness Extremity: Normal Capillary Refill, Normal Inspection, Normal Range of Motion, Non Tender, No Calf Tenderness, No Pedal Edema Neurologic/Psychiatric: Alert, Oriented x3, No Motor/Sensory Deficits, Normal Mood/Affect Skin: Normal Color, Warm/Dry Lymphatic: No Adenopathy Results Results/Procedures Lab Laboratory Tests 05/24/17 16:58 05/25/17 05:05 Short Stay Diagnosis Discharge Diagnosis-Short Stay Admission Diagnosis Abdominal pain 2.hematochezia Final Discharge Diagnosis Diffuse colitis, infectious. 2.endoscopic evidence of mucosal disruption right and transverse colon. 3.Clostridium difficile enteritis Conclusion Plan Discharge. See discharge sequence for diet and medications Clinical Quality Measures DVT/VTE Risk/Contraindication: Risk Factor Score Per Nursin RFS Level Per Nursing on Admit: 3=High SHON KELLER MD May 26, 2017 10:53
[2017-05-26] MEDS ORDERED: CHOL4PAC3 PO ×2 (10:59)
[2017-05-26] MEDS ORDERED: METR500T PO ×2 (10:59)
--- NOTE | 2017-05-26 11:03 | Discharge Instructions ---
Discharge Instructions Patient Instructions Patient Instructions Medications as prescribed Small feeding brat type diet. You will need to take all of the medications in order to control the diarrhea and achieve a cure. Follow-up with your primary if problems Copy Copies To 1: REMA MODI MD, RODNEY K MD May 26, 2017 11:03
[2017-05-26] MEDS: ONDANSETRON 4 MG/2 ML (SDV) Z0FRAN IVP PRN (11:32)
[2017-05-26 12:00] VITALS: BP 131/80
[2017-05-26 12:30] VITALS: BP 131/80
--- OUTSIDE RECORDS SUMMARY | 2017-05-27 18:07 | XMS REPORT | Continuity of Care Document ---
Author Author [facility] Address Unknown Phone Unavailable Allergies Active Description Code Type Severity Reaction Onset Reported/Identified Relationship to Patient Clinical Status Yes No Known Drug Allergies [id number] Drug Allergy Unknown N/ A 05/04/2016 Medications Problems Date Dx Coded Attending Type Code Diagnosis Diagnosed By 06/24/2008 724.79 OTHER DISORDERS OF COCCYX 06/24/2008 724.79 OTHER DISORDERS OF COCCYX 06/24/2008 724.79 OTHER DISORDERS OF COCCYX 06/24/2008 CHARBEL OLSON APRN 724.79 OTHER DISORDERS OF COCCYX 09/08/2012 V04.81 FLU DX (3 YRS AND ABOVE, IM) 09/08/2012 V04.81 FLU DX (3 YRS AND ABOVE, IM) 09/08/2012 V04.81 FLU DX (3 YRS AND ABOVE, IM) 09/08/2012 CHARBEL OLSON APRN V04.81 FLU DX (3 YRS AND ABOVE, IM) 03/02/2013 V03.89 MENINGOCOCCAL DX 03/02/2013 V03.89 MENINGOCOCCAL DX 03/02/2013 V03.89 MENINGOCOCCAL DX 03/02/2013 CHARBEL OLSON APRN V03.89 MENINGOCOCCAL DX 03/16/2013 789.04 ABDOMINAL PAIN LEFT LOWER QUADRANT 03/16/2013 V25.01 CONTRACEPTION - ORAL CONTRACEPTION 03/16/2013 V65.45 COUNSELING - STD 03/16/2013 V69.2 HIGH-RISK SEXUAL BEHAVIOR 03/16/2013 V74.5 STD SCREEN 03/16/2013 789.04 ABDOMINAL PAIN LEFT LOWER QUADRANT 03/16/2013 V25.01 CONTRACEPTION - ORAL CONTRACEPTION 03/16/2013 V65.45 COUNSELING - STD 03/16/2013 V69.2 HIGH-RISK SEXUAL BEHAVIOR 03/16/2013 V74.5 STD SCREEN 03/16/2013 CHARBEL OLSON APRN 789.04 ABDOMINAL PAIN LEFT LOWER QUADRANT 03/16/2013 CHARBEL OLSON APRN V25.01 CONTRACEPTION - ORAL CONTRACEPTION 03/16/2013 CHARBEL OLSON APRN A V65.45 COUNSELING - STD 03/16/2013 CHARBEL OLSON APRN A V69.2 HIGH-RISK SEXUAL BEHAVIOR 03/16/2013 CHARBEL OLSON APRN A V74.5 STD SCREEN 09/08/2013 CHARBEL OLSON APRN A 305.1 TOBACCO ABUSE 09/08/2013 CHARBEL OLSON APRN A 381.81 EUSTACHIAN TUBE DYSFUNCTION 09/08/2013 CHARBEL OLSON APRN A 461.9 SINUSITIS ACUTE 05/04/2016 ETTA AGUIRRE, GERMAINE Chong Ot M54.6 PAIN IN THORACIC SPINE 05/06/2016 ETTA AGUIRRE, GERMAINE Chong Ot M54.6 PAIN IN THORACIC SPINE 10/08/2016 LY AGUIRRE, REMA Miller Ot 789.03 ABDOMINAL PAIN, RIGHT LOWER QUADRANT 10/08/2016 MICHAEL OLVERA Ot 789.01 ABDOMINAL PAIN, RIGHT UPPER QUADRANT 04/22/2017 CARLOTA LIPSCOMB Ot L03.113 CELLULITIS OF RIGHT UPPER LIMB 04/22/2017 CARLOTA LIPSCOMB Ot S60.414A ABRASION OF RIGHT RING FINGER, INITIAL E 04/22/2017 CARLOTA LIPSCOMB Ot W22.8XXA STRIKING AGAINST OR STRUCK BY OTHER OBJE 04/22/2017 CARLOTA LIPSCOMB Ot Y93.G1 ACTIVITY, FOOD PREPARATION AND CLEAN UP 04/22/2017 CARLOTA LIPSCOMB Ot Y99.0 CIVILIAN ACTIVITY DONE FOR INCOME OR PAY 04/23/2017 CARLOTA LIPSCOMB Ot S69.91XA UNSP INJURY OF RIGHT WRIST, HAND AND FIN 04/23/2017 CARLOTA LIPSCOMB Ot Z53.21 PROC/TRTMT NOT CRD OUT D/T PT LV BEF SEE 04/26/2017 CARLOTA LIPSCOMB Ot S69.91XA UNSP INJURY OF RIGHT WRIST, HAND AND FIN 04/26/2017 CARLOTA LIPSCOMB Ot Z53.21 PROC/TRTMT NOT CRD OUT D/T PT LV BEF SEE Procedures Code [place] [address] ROUTINE VENIPUNCTURE 03/16/2013 26634 URINE TEST (IN-HOUSE) 03/16/2013 79163 [facility] 03/16/2013 71405 HIV ANTIBODIES (L) 03/16/2013 61198 HEP C ANTIBODY ([facility]) 03/16/2013 40727 GC/CHLAM URINE ([facility]) 03/16/2013 Results Test Result Range Complete blood count (CBC) with automated white blood cell (WBC) differential - 05/24/17 09:50 Blood leukocytes automated count (number/volume) 11.4 10*3/ uL 4.3-11.0 Blood erythrocytes automated count (number/volume) 4.98 10*6 /uL 4.35-5.85 Venous blood hemoglobin measurement (mass/volume) 14.8 g/dL 11.5-16.0 Blood hematocrit (volume fraction) 44 % 35-52 Automated erythrocyte mean corpuscular volume 88 [foz_us] 80-99 Automated erythrocyte mean corpuscular hemoglobin (mass per erythrocyte) 30 pg 25-34 Automated erythrocyte mean corpuscular hemoglobin concentration measurement ( mass/volume) 34 g/dL 32-36 Automated erythrocyte distribution width ratio 13.1 % 10.0-14.5 Automated blood platelet count (count/volume) 224 10*3/uL 130-400 Automated blood platelet mean volume measurement 10.1 [foz_ us] 7.4-10.4 Automated blood neutrophils/100 leukocytes 58 % 42-75 Automated blood lymphocytes/100 leukocytes 31 % 12-44 Blood monocytes/100 leukocytes 9 % 0-12 Automated blood eosinophils/100 leukocytes 2 % 0-10 Automated blood basophils/100 leukocytes 0 % 0-10 Blood neutrophils automated count (number/volume) 6.7 10*3 1.8-7.8 Blood lymphocytes automated count (number/volume) 3.5 10*3 1.0-4.0 Blood monocytes automated count (number/volume) 1.0 10*3 0.0-1.0 Automated eosinophil count 0.2 10*3/uL 0.0-0.3 Automated blood basophil count (count/volume) 0.1 10*3/uL 0.0-0.1 Comprehensive metabolic panel - 05/24/17 09:50 Serum or plasma sodium measurement (moles/volume) 140 mmol/ L 135-145 Serum or plasma potassium measurement (moles/volume) 4.0 mmol/L 3.6-5.0 Serum or plasma chloride measurement (moles/volume) 108 mmol /L 98-107 Carbon dioxide 22 mmol/L 21-32 Serum or plasma anion gap determination (moles/volume) 10 mmol/L 5-14 Serum or plasma urea nitrogen measurement (mass/volume) 8 mg /dL 7-18 Serum or plasma creatinine measurement (mass/volume) 0.79 mg /dL 0.60-1.30 Serum or plasma urea nitrogen/creatinine mass ratio 10 NRG Serum or plasma creatinine measurement with calculation of estimated glomerular filtration rate > NRG Serum or plasma glucose measurement (mass/volume) 130 mg/dL 70-105 Serum or plasma calcium measurement (mass/volume) 10.0 mg/ dL 8.5-10.1 Serum or plasma total bilirubin measurement (mass/volume) 0.3 mg/dL 0.1-1.0 Serum or plasma alkaline phosphatase measurement (enzymatic activity/volume) 56 U/L 40-136 Serum or plasma aspartate aminotransferase measurement (enzymatic activity/ volume) 18 U/L 5-34 Serum or plasma alanine aminotransferase measurement (enzymatic activity/volume ) 44 U/L 0-55 Serum or plasma protein measurement (mass/volume) 7.6 g/dL 6.4-8.2 Serum or plasma albumin measurement (mass/volume) 4.1 g/dL 3.2-4.5 Lipase - 05/24/17 09:50 Lipase 24 U/L 8-78 Complete urinalysis with reflex to culture - 05/24/17 10:04 Urine color determination JOHN NRG Urine clarity determination VERY CLOUDY NRG Urine pH measurement by test strip 6 5- 9 Specific gravity of urine by test strip 1.025 1.016-1.022 Urine protein assay by test strip, semi-quantitative 4+ NEGATIVE Urine glucose detection by automated test strip NEGATIVE NEGATIVE Erythrocytes detection in urine sediment by light microscopy 2+ NEGATIVE Urine ketones detection by automated test strip 2+ NEGATIVE Urine nitrite detection by test strip NEGATIVE NEGATIVE Urine total bilirubin detection by test strip 2+ NEGATIVE Urine urobilinogen measurement by automated test strip (mass/volume) 8 mg/dL NORMAL Urine leukocyte esterase detection by dipstick 2+ NEGATIVE Automated urine sediment erythrocyte count by microscopy (number/high power field) NONE NRG Automated urine sediment leukocyte count by microscopy (number/high power field ) [HPF] NRG Bacteria detection in urine sediment by light microscopy LARGE NRG Squamous epithelial cells detection in urine sediment by light microscopy 5-10 NRG Crystals detection in urine sediment by light microscopy NONE NRG Casts detection in urine sediment by light microscopy NONE NRG Mucus detection in urine sediment by light microscopy MODERATE NRG Complete urinalysis with reflex to culture NO NRG Complete blood count (CBC) with automated white blood cell (WBC) differential - 05/24/17 16:58 Blood leukocytes automated count (number/volume) 14.8 10*3/ uL 4.3-11.0 Blood erythrocytes automated count (number/volume) 4.80 10*6 /uL 4.35-5.85 Venous blood hemoglobin measurement (mass/volume) 14.2 g/dL 11.5-16.0 Blood hematocrit (volume fraction) 42 % 35-52 Automated erythrocyte mean corpuscular volume 88 [foz_us] 80-99 Automated erythrocyte mean corpuscular hemoglobin (mass per erythrocyte) 30 pg 25-34 Automated erythrocyte mean corpuscular hemoglobin concentration measurement ( mass/volume) 34 g/dL 32-36 Automated erythrocyte distribution width ratio 12.9 % 10.0-14.5 Automated blood platelet count (count/volume) 241 10*3/uL 130-400 Automated blood platelet mean volume measurement 10.2 [foz_ us] 7.4-10.4 Automated blood neutrophils/100 leukocytes 85 % 42-75 Automated blood lymphocytes/100 leukocytes 11 % 12-44 Blood monocytes/100 leukocytes 5 % 0-12 Automated blood eosinophils/100 leukocytes 0 % 0-10 Automated blood basophils/100 leukocytes 0 % 0-10 Blood neutrophils automated count (number/volume) 12.6 10*3 1.8-7.8 Blood lymphocytes automated count (number/volume) 1.6 10*3 1.0-4.0 Blood monocytes automated count (number/volume) 0.7 10*3 0.0-1.0 Automated eosinophil count 0.0 10*3/uL 0.0-0.3 Automated blood basophil count (count/volume) 0.0 10*3/uL 0.0-0.1 Blood manual differential performed detection - 05/24/17 16:58 Blood monocytes/100 leukocytes 6 % NRG Manual blood segmented neutrophils/100 leukocytes 79 % NRG Blood band neutrophils/100 leukocytes 4 % NRG Manual blood lymphocytes/100 leukocytes 11 % NRG Manual eosinophils/100 leukocytes in nose 0 % NRG Manual blood basophils/100 leukocytes 0 % NRG Blood erythrocyte morphology finding identification NORMAL NRG Serum or plasma choriogonadotropin ( test) detection - 05/24/17 16:58 Serum or plasma choriogonadotropin ( test) detection NEGATIVE NEGATIVE Comprehensive metabolic panel - 05/24/17 16:58 Serum or plasma sodium measurement (moles/volume) 139 mmol/ L 135-145 Serum or plasma potassium measurement (moles/volume) 4.0 mmol/L 3.6-5.0 Serum or plasma chloride measurement (moles/volume) 109 mmol /L 98-107 Carbon dioxide 21 mmol/L 21-32 Serum or plasma anion gap determination (moles/volume) 9 mmol/L 5-14 Serum or plasma urea nitrogen measurement (mass/volume) 6 mg /dL 7-18 Serum or plasma creatinine measurement (mass/volume) 0.71 mg /dL 0.60-1.30 Serum or plasma urea nitrogen/creatinine mass ratio 8 NRG Serum or plasma creatinine measurement with calculation of estimated glomerular filtration rate > NRG Serum or plasma glucose measurement (mass/volume) 126 mg/dL 70-105 Serum or plasma calcium measurement (mass/volume) 9.4 mg/dL 8.5-10.1 Serum or plasma total bilirubin measurement (mass/volume) 0.3 mg/dL 0.1-1.0 Serum or plasma alkaline phosphatase measurement (enzymatic activity/volume) 53 U/L 40-136 Serum or plasma aspartate aminotransferase measurement (enzymatic activity/ volume) 17 U/L 5-34 Serum or plasma alanine aminotransferase measurement (enzymatic activity/volume ) 42 U/L 0-55 Serum or plasma protein measurement (mass/volume) 7.3 g/dL 6.4-8.2 Serum or plasma albumin measurement (mass/volume) 4.0 g/dL 3.2-4.5 Stool occult blood screen - 05/24/17 17:56 Stool gastrointestinal hemoglobin detection POSITIVE NEGATIVE Encounters ACCT No. Visit Date/Time Discharge Status Pt. Type Provider Facility Loc./Unit Complaint [id number] 09/08/2013 10:57:00 09/08/2013 23: 59:59 [facility] Outpatient CHARBEL OLSON APRN [id number] 03/02/2013 12:48:00 03/02/2013 23: 59:59 [facility] Outpatient [id number] 03/16/2013 16:07:00 Document Registration [id number] 03/16/2013 10:40:00 Document Registration [id number] 03/02/2013 13:17:20 RECURRING
== END 2017-05-26 12:30 | disposition home or self-care (01) ==
LOC: 4TH 16:25 → UNDOADMOB 16:25 → 4TH 16:25 → SDC 16:25 → UNDODISOB 05-26 12:30
PROVIDERS: ATTEND Internal Medicine
DX: A04.7 Enterocolitis due to Clostridium difficile (principal); F17.210 Nicotine dependence, cigarettes, uncomplicated
CPT/HCPCS: 36415; 80053; 82274; 84703; 85007; 85025; 85027; 87045; 87046; 87324; 87328; 87329; 87449; 87493; 88305; 99211; G0378